=== PATIENT | female | born 1965 | race Caucasian/White ===

== ENCOUNTER 2019-07-10 12:34 | Emergency (ER) | payer BC ==
[2019-07-10] MEDS ORDERED: 0.9 % SODIUM CHLORIDE 1,000 ML BAG IV ONE (13:20)
[2019-07-10] MEDS ORDERED: MAGNESIUM HYDROXIDE/AL HYDROX 30 ML, LIDOCAINE VISC 2% 15ML 15 ML PO ONE ×2 (13:20)
--- NOTE | 2019-07-10 13:22 | Emergency Department Record ---
History of Present Illness - General Chief Complaint: Abdominal Pain Stated Complaint: ABD PAIN Time Seen by Provider: 07/10/19 13:16 Source: Patient, RN notes reviewed Mode of Arrival: Ambulatory - History of Present Illness Initial Comments: epigastric abdominal pain and bilateral upper quad pain and indigestion, mostly started today but has not felt quite well for 2-3 weeks. Didn't eat anything today. Onset/Timin -: Week(s) Location: RUQ Radiation: Back Severity: Moderate Severity scale (1-10): 10 Quality: Dull, Sharp Consistency: Intermittent Improves With: Nothing Worsens With: Nothing Associated Symptoms: Denies other symptoms - Related Data Home Medications Medication Instructions Recorded Confirmed Last Taken Ibuprofen [Motrin] 800 mg PO Q6H PRN 07/10/19 07/10/19 07/10/19 Levothyroxine Sodium [Synthroid] 75 mcg PO DAILY 07/10/19 07/10/19 07/10/19 Venlafaxine HCl [Effexor] 75 mg PO DAILY 07/10/19 07/10/19 07/10/19 Previous Rx's Medication Instructions Recorded Omeprazole 20 mg PO DAILY #30 mahnaz. 07/10/19 Allergies Allergy/AdvReac Type Severity Reaction Status Date / Time No Known Drug Allergies Allergy Verified 07/10/19 12:45 Travel Screening - Travel/Exposure Within Last 30 Days Have you traveled within the last 30 days?: No - Travel/Exposure Within Last Year Have you traveled outside the [place] in the last year?: No - Additonal Travel Details Have you been exposed to anyone with a communicable illness?: No - Travel Symptoms Symptom Screening: None Review of Systems Reviewed: No additional complaints except as noted below Constitutional: Reports: As per HPI. Denies: Chills, Fever, Malaise, Night sweats, Weakness, Weight change Eyes: Reports: As per HPI. Denies: Eye discharge, Eye pain, Photophobia, Vision change ENT: Reports: As per HPI. Denies: Congestion, Dental pain, Ear pain, Epistaxis, Hearing loss, Throat pain Respiratory: Reports: As per HPI. Denies: Cough, Dyspnea, Hemoptysis, Stridor, Wheezes Cardiovascular: Reports: As per HPI. Denies: Arrhythmia, Chest pain, Dyspnea on exertion, Edema, Murmurs, Orthopnea, Palpitations, Paroxysmal nocturnal dyspnea, Rheumatic Fever, Syncope Endocrine: Reports: As per HPI. Denies: Fatigue, Heat or cold intolerance, Polydipsia, Polyuria Gastrointestinal: Reports: As per HPI, Abdominal pain (epigastric pain). Denies: Constipation, Diarrhea, Hematemesis, Hematochezia, Melena, Nausea, Vomiting Genitourinary: Reports: As per HPI. Denies: Abnormal menses, Discharge, Dyspareunia, Dysuria, Frequency, Hematuria, Incontinence, Retention, Urgency Musculoskeletal: Reports: As per HPI. Denies: Arthralgia, Back pain, Gout, Joint swelling, Myalgia, Neck pain Skin: Reports: As per HPI. Denies: Bruising, Change in color, Change in hair/nails, Lesions, Pruritus, Rash Neurological: Reports: As per HPI. Denies: Abnormal gait, Confusion, Headache, Numbness, Paresthesias, Seizure, Tingling, Tremors, Vertigo, Weakness Psychiatric: Reports: As per HPI. Denies: Anxiety, Auditory hallucinations, Depression, Homicidal thoughts, Suicidal thoughts, Visual hallucinations Hematological/Lymphatic: Reports: As per HPI. Denies: Anemia, Blood Clots, Easy bleeding, Easy bruising, Swollen glands Past Medical History - SOCIAL HISTORY Smoking Status: Current every day smoker Alcohol Use: Occasional Drug Use: None - RESPIRATORY Hx Respiratory Disorders: No - CARDIOVASCULAR Hx Cardio Disorders: No - NEURO Hx Neuro Disorders: No - GI Hx GI Disorders: No - Hx Genitourinary Disorders: No - ENDOCRINE Hx Endocrine Disorders: Yes Hx Thyroid Disease: Yes - MUSCULOSKELETAL Hx Musculoskeletal Disorders: No - PSYCH Hx Psych Problems: Yes Hx Depression: Yes - HEMATOLOGY/ONCOLOGY Hx Hematology/Oncology Disorders: Yes Hx Cancer: Yes (cervical) Family Medical History Any Significant Family History?: Yes Hx Cancer: Grandparents Hx Dementia: Mother, Grandparents Hx Heart Disease: Mother, Grandparents Physical Exam - General General Appearance: Alert, Oriented x3, Cooperative, No acute distress - Head Head exam: Normal inspection - Eye Eye exam: Normal appearance, PERRL Pupils: Normal accommodation - ENT ENT exam: Normal exam, Mucous membranes moist, Normal external ear exam, Normal orophraynx, TM's normal bilaterally Ear exam: Normal external inspection. negative: External canal tenderness Nasal Exam: Normal inspection. negative: Discharge, Sinus tenderness Mouth exam: Normal external inspection, Tongue normal Teeth exam: Normal inspection. negative: Dental caries Throat exam: Normal inspection. negative: Tonsillar erythema, Tonsillar exudate - Neck Neck exam: Normal inspection, Full ROM. negative: Tenderness - Respiratory Respiratory exam: Normal lung sounds bilaterally. negative: Respiratory distress - Cardiovascular Cardiovascular Exam: Regular rate, Normal rhythm, Normal heart sounds - GI/Abdominal GI/Abdominal exam: Soft, Normal bowel sounds, Tenderness (epigastric pain and no pain belog the umbilicus, soft and no rebound and no pain percussing the back) - Rectal Rectal exam: Deferred - exam: Deferred - Extremities Extremities exam: Normal inspection, Full ROM, Normal capillary refill. negative: Tenderness - Back Back exam: Reports: Normal inspection, Full ROM. Denies: Muscle spasm, Rash noted, Tenderness - Neurological Neurological exam: Alert, Normal gait, Oriented X3, Reflexes normal - Psychiatric Psychiatric exam: Normal affect, Normal mood - Skin Skin exam: Dry, Intact, Normal color, Warm Course Vital Signs 07/10/19 12:48 Temperature 97.4 F L Pulse Rate 62 Respiratory 18 Rate Blood Pressure 137/91 Pulse Ox 99 - Reevaluation(s) Reevaluation #1: 07/10/19 14:21 GI cocktail helped Medical Decision Making - Data Complexity MDM Data: Labs Ordered and/or Reviewed (hg 13.0) - Lab Data Result diagrams: 07/10/19 13:20 07/10/19 13:20 Disposition Clinical Impression: Gastritis Abdominal pain Qualifiers: Abdominal location: epigastric Qualified Code(s): R10.13 - Epigastric pain Disposition: Home, Self-Care Condition: (1) Good Instructions: Gastritis (ED) Additional Instructions: stop motrin and use tylenol for pain avoid spicy,acidic food or greasy food follow up with family Dr in one week use Tums three after meals and bedtime Prescriptions: Omeprazole 20 mg PO DAILY #30 cap.dr Forms: Patient Portal Access Time of Disposition: 14:25 Quality - Quality Measures Quality Measures: N/A - Blood Pressure Screening Does Patient Have Any of the Following: No Blood Pressure Classification: Hypertensive Reading Systolic Measurement: 137 Diastolic Measurement: 91 Screening for High Blood Pressure: < Pre-Hypertensive BP, F/U Documented > [G8 950] Pre-Hypertensive Follow-up Interventions: Referral to alternative/primary care provider.
[2019-07-10] MEDS ORDERED: PANTOPRAZOLE SODIUM 40 MG TABLET PO ONE (13:23)
[2019-07-10 13:26] LABS: ABSOLUTE NEUTROPHIL COUNT 3.67; BASO % 0.6 % (0-6); EOS % 2.6 % (0-6); GRAN % 58.8 % (47-80); HEMATOCRIT 41.2 % (35.0-47.0); LYMPH % 31.3 % (16-45); MEAN CELL VOLUME 88.2 fl (81-97); MONO % 6.7 % (0-9); PLATELET COUNT 221 K/uL (130-400); RED BLOOD COUNT 4.67 M/uL (3.80-5.40); RED CELL DISTRIBUTION WIDTH 13.1 % (11.5-14.5); WHITE BLOOD COUNT W/O DIFF 6.2 K/uL (4.2-12.2)
[2019-07-10 13:30] LABS: BLOOD UREA NITROGEN 15 mg/dL (6-20); CREATININE 0.7 mg/dL (0.5-0.9); EST GLOMERULAR FILTRATION RATE > 60 mL/min
[2019-07-10 13:31] LABS: LIPASE 33 U/L (13-60); TOTAL PROTEIN 7.1 g/dL (6.6-8.7)
[2019-07-10 13:33] LABS: GLUCOSE,RANDOM 96 mg/dL (74-109)
[2019-07-10 13:35] LABS: ALBUMIN 4.6 g/dL (4.0-5.0); ALT/SGPT 10 U/L (<33); AST/SGOT 17 U/L (10.0-35.0)
[2019-07-10 13:36] LABS: ALKALINE PHOSPHATASE 103 U/L (35-104); BILIRUBIN,DIRECT < 0.2 mg/dL (0-0.3)
== END 2019-07-10 14:43 | disposition home or self-care (01) ==
LOC: ER 12:34
DX: K29.70 Gastritis, unspecified, without bleeding (principal); R10.13 Epigastric pain; F17.210 Nicotine dependence, cigarettes, uncomplicated
CPT/HCPCS: 80048; 80076; 83690; 85025; 99284